=== PATIENT | female | born 1975 | race Caucasian/White ===

== ENCOUNTER → 2018-03-03 | Outpatient (CLI) | payer MEDICARE, OTHER ==
[2018-03-03 16:30] VITALS: BP 122/79; PULSE 87; TEMP 98.4; BMI 36.1
--- NOTE | 2018-03-14 13:14 | P.HPBAR ---
Bariatric H&P - History & Physicial H&P Date: 03/03/18 History & Physicial: Visit/CC: initial visit Patient initial contact: Initial weight: Initial weight in pounds: Height: 5 ft 4 in Initial BMI: Last weight: Current weight: 95.436 kg Current weight in pounds: 210.40 Current BMI: 36.1 [place] body weight (based on NIH guidelines): 54.431 kg Excess body weight loss: The patient is a 42 year-old F who presents for Bariatric Assessment.the patient has a previous history of sleeve gastrectomy. Her sleeve gastric was performed in [place]. She initially lost 125 pounds. She hpresents today for inflammation on Lpanniculectomy. The patient developed a well-formed pannus due to her weight loss. She states she has developed skin rashes and chronic irritations at her panniculus Past Medical History Additional Past Medical History / Comment(s): [facility] BONE DISORDER History of Any Multi-Drug Resistant Organisms: None Reported Past Surgical History: Bariatric Surgery, Bladder Surgery, Section, Hysterectomy Additional Past Surgical History / Comment(s): SLEEVE GASTRECTOMY C SECTION X 2 RIGHT CLAVICLE SURGERY Past Anesthesia/Blood Transfusion Reactions: No Reported Reaction Past Psychological History: ADD/ADHD Smoking Status: Current every day smoker Past Alcohol Use History: None Reported Additional Past Alcohol Use History / Comment(s): PATIENT STATES SHE SMOKES TWO CIGARETTES PER DAY Past Drug Use History: None Reported Surgical - Exam Vital Signs Temp Pulse BP 98.4 F 87 122/79 03/03/18 16:28 03/03/18 16:28 03/03/18 16:28 - General well developed, no distress - Eyes PERRL - Abdomen well-formed panniculus with evidence of skin irritation. Abdomen: soft, non tender Bariatric Assessment & Plan Plan: panniculus. Will follow perform panniculectomy once patient has been medically cleared and received insurance authorization. Patient will follow up in 1 month for recheck. Bariatric Checklist Checklist: Plan: Checklist: EGD: 1. Hiatal hernia: 2. H. Pylori: HgbA1c: Vitamin D: Smoking: Current every day smoker Primary care physician referral: dr anderson Psychiatry clearance: Cardiology clearance: Sleep study: Diet journal: VTE risk score: VTE risk level: Rehab needs at discharge:
== END | disposition home or self-care (01) ==
LOC: BARWHC3 14:33
PROVIDERS: ATTEND Surgery
DX: Z09 Encounter for follow-up examination after completed treatment for conditions other than malignant neoplasm (principal); E65 Localized adiposity; Z98.84 Bariatric surgery status; Z98.890 Other specified postprocedural states; F90.1 Attention-deficit hyperactivity disorder, predominantly hyperactive type; F17.200 Nicotine dependence, unspecified, uncomplicated
CPT/HCPCS: 99201

== ENCOUNTER → 2018-03-17 | Outpatient (CLI) | payer MEDICARE, OTHER ==
--- NOTE | 2018-03-17 15:30 | P.HPBAR ---
Bariatric H&P - History & Physicial H&P Date: 03/17/18 History & Physicial: Visit/CC: Patient initial contact: Initial weight: Initial weight in pounds: Height: Initial BMI: Last weight: Current weight: Current weight in pounds: Current BMI: [place] body weight (based on NIH guidelines): Excess body weight loss: The patient is a 42 year-old F who presents for Bariatric Assessment. Patient presents today for Panniculectomy consultation. The patient was seen 2 weeks ago. She has a good understanding of panniculectomy. Patient is aware the risks of surgery. Past Medical History Additional Past Medical History / Comment(s): [facility] BONE DISORDER History of Any Multi-Drug Resistant Organisms: None Reported Past Surgical History: Bariatric Surgery, Bladder Surgery, Section, Hysterectomy Additional Past Surgical History / Comment(s): SLEEVE GASTRECTOMY C SECTION X 2 RIGHT CLAVICLE SURGERY Past Anesthesia/Blood Transfusion Reactions: No Reported Reaction Past Psychological History: ADD/ADHD Smoking Status: Current every day smoker Past Alcohol Use History: None Reported Additional Past Alcohol Use History / Comment(s): PATIENT STATES SHE SMOKES TWO CIGARETTES PER DAY Past Drug Use History: None Reported Surgical - Exam - General well developed, no distress - Eyes PERRL - Abdomen Well-formed panniculus Abdomen: soft, non tender Bariatric Assessment & Plan Plan: Patient has a well-formed panniculus. I went over the risks and benefits of perforated colectomy. I discussed with her this is a cosmetic procedure our of procedure remove redundant skin and fat. Patient with a risk of seroma hematoma with infection. She'll be scheduled once her insurance authorization is improved. Bariatric Checklist Checklist: Plan: Checklist: EGD: 1. Hiatal hernia: 2. H. Pylori: HgbA1c: Vitamin D: Smoking: Current every day smoker Primary care physician referral: dr anderson Psychiatry clearance: Cardiology clearance: Sleep study: Diet journal: VTE risk score: VTE risk level: Rehab needs at discharge:
[2018-03-17 15:52] VITALS: BP 136/65; PULSE 60; RESP 16; TEMP 98.6; BMI 36.6
== END | disposition home or self-care (01) ==
LOC: BARWHC3 15:36
PROVIDERS: ATTEND Surgery
DX: Z09 Encounter for follow-up examination after completed treatment for conditions other than malignant neoplasm (principal); F17.210 Nicotine dependence, cigarettes, uncomplicated; F90.1 Attention-deficit hyperactivity disorder, predominantly hyperactive type; Z98.84 Bariatric surgery status; Z98.890 Other specified postprocedural states
CPT/HCPCS: 99211

== ENCOUNTER → 2018-05-19 | Outpatient (CLI) | payer MEDICARE, OTHER ==
[2018-05-19 15:53] VITALS: BP 133/67; PULSE 86; TEMP 98.2; BMI 36.6
--- NOTE | 2018-05-19 16:09 | P.HPBAR ---
Bariatric H&P - History & Physicial H&P Date: 05/19/18 History & Physicial: Visit/CC: folllow up visit Patient initial contact: Initial weight: 106.141 kg Initial weight in pounds: 234.00 Height: 5 ft 4 in Initial BMI: 40.1 Last weight: Current weight: 96.615 kg Current weight in pounds: 213.00 Current BMI: 36.6 [place] body weight (based on NIH guidelines): 54.431 kg Excess body weight loss: 18.4% The patient is a 42 year-old F who presents for Bariatric Assessment. Patient presents today for panniculectomy. Patient is loss next 100 pounds. She has complaints of chronic skin irritation. Past Medical History Additional Past Medical History / Comment(s): [facility] BONE DISORDER History of Any Multi-Drug Resistant Organisms: None Reported Past Surgical History: Bariatric Surgery, Bladder Surgery, Section, Hysterectomy Additional Past Surgical History / Comment(s): SLEEVE GASTRECTOMY C SECTION X 2 RIGHT CLAVICLE SURGERY Past Anesthesia/Blood Transfusion Reactions: No Reported Reaction Past Psychological History: ADD/ADHD Smoking Status: Current every day smoker Past Alcohol Use History: None Reported Additional Past Alcohol Use History / Comment(s): PATIENT STATES SHE SMOKES TWO CIGARETTES PER DAY Past Drug Use History: None Reported Surgical - Exam Vital Signs Temp Pulse BP 98.2 F 86 133/67 05/19/18 15:48 05/19/18 15:48 05/19/18 15:48 - General well developed, no distress - Eyes PERRL - ENT normal pinna - Neck no masses - Respiratory normal expansion - Abdomen Abdomen: soft, non tender Bariatric Assessment & Plan Plan: Panniculus. Patient has had history of chronic skin irritation. Patient will obtain a prior zone from her PCP regarding her chronic skin irritation. We will tend to optimize her for pathology. Bariatric Checklist Checklist: Plan: Checklist: EGD: 1. Hiatal hernia: 2. H. Pylori: HgbA1c: Vitamin D: Smoking: Current every day smoker Primary care physician referral: dr anderson Psychiatry clearance: Cardiology clearance: Sleep study: Diet journal: VTE risk score: VTE risk level: Rehab needs at discharge:
== END | disposition home or self-care (01) ==
LOC: BARWHC3 13:46
PROVIDERS: ATTEND Surgery
DX: Z09 Encounter for follow-up examination after completed treatment for conditions other than malignant neoplasm (principal); E65 Localized adiposity; L98.9 Disorder of the skin and subcutaneous tissue, unspecified; F90.1 Attention-deficit hyperactivity disorder, predominantly hyperactive type; F17.210 Nicotine dependence, cigarettes, uncomplicated; Z98.84 Bariatric surgery status; Z90.710 Acquired absence of both cervix and uterus; Z98.890 Other specified postprocedural states
CPT/HCPCS: 99211

== ENCOUNTER → 2019-06-01 | Outpatient (CLI) | payer MEDICARE, OTHER ==
[2019-06-01 15:22] VITALS: BP 142/86; PULSE 76; TEMP 97.4; BMI 35.9
--- NOTE | 2019-07-06 14:29 | P.HPBAR ---
Bariatric H&P - History & Physicial H&P Date: 06/01/19 History & Physicial: Visit/CC: panni visit Patient initial contact: Initial weight: 106.141 kg Initial weight in pounds: 234.00 Height: 5 ft 4 in Initial BMI: 40.1 Last weight: Current weight: 94.801 kg Current weight in pounds: 209.00 Current BMI: 35.9 [place] body weight (based on NIH guidelines): 54.431 kg Excess body weight loss: 21.9% The patient is a 43 year-old F who presents for Bariatric Assessment. Patient presents today for Adina be constipation. Patient's developed a well-formed panniculus she is had issues with chronic skin irritation's. She has been previously detailed on panniculectomy. 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 She states that she has been treated for panniculitis by her PCP Past Medical History Additional Past Medical History / Comment(s): H BONE DISORDER History of Any Multi-Drug Resistant Organisms: None Reported Past Surgical History: Bariatric Surgery, Bladder Surgery, Section, Hysterectomy Additional Past Surgical History / Comment(s): SLEEVE GASTRECTOMY C SECTION X 2 RIGHT CLAVICLE SURGERY Past Anesthesia/Blood Transfusion Reactions: No Reported Reaction Past Psychological History: ADD/ADHD Smoking Status: Current every day smoker Past Alcohol Use History: None Reported Additional Past Alcohol Use History / Comment(s): PATIENT STATES SHE SMOKES TWO CIGARETTES PER DAY Past Drug Use History: None Reported Surgical - Exam Vital Signs Temp Pulse BP 97.4 F L 76 142/86 06/01/19 15:18 06/01/19 15:18 06/01/19 15:18 - General well developed, well nourished, no distress - Eyes PERRL - ENT normal pinna, normal mucosa - Neck no masses - Respiratory normal expansion - Cardiovascular Rhythm: regular - Abdomen Well-formed panniculus with evidence of chronic skin irritation Abdomen: soft, non tender Bariatric Assessment & Plan Plan: Panniculus with evidence of chronic skin irritation. Patient will be. Arthritis for panniculectomy. Bariatric Checklist Checklist: Plan: Checklist: EGD: 1. Hiatal hernia: 2. H. Pylori: HgbA1c: Vitamin D: Smoking: Current every day smoker Primary care physician referral: dr anderson Psychiatry clearance: Cardiology clearance: Sleep study: Diet journal: VTE risk score: VTE risk level: Rehab needs at discharge:
== END | disposition home or self-care (01) ==
LOC: BARWHC3 15:05
PROVIDERS: ATTEND Surgery
DX: M79.3 Panniculitis, unspecified (principal); L98.9 Disorder of the skin and subcutaneous tissue, unspecified; F17.210 Nicotine dependence, cigarettes, uncomplicated; Z98.84 Bariatric surgery status
CPT/HCPCS: 99211